=== PATIENT | female | born 1940 | race Caucasian/White ===

== ENCOUNTER 2023-10-27 14:04 | Emergency (ER) | payer OTHER ==
[~2023-10-27] VITALS: Ht 149.9 cm; Wt 69.9 kg
[2023-10-27 14:27] VITALS: BP 119/95; PULSE 65; RESP 19; TEMP 98.2; O2SAT 99
[2023-10-27] MEDS: ACETAMINOPHEN 325 MG TAB PO ONE (15:33)
[2023-10-27 15:38] LABS: BASOPHILS # (AUTO) 0.1 K/uL (0.00-0.22); BASOPHILS % (AUTO) 1.2 % (0.0-2.0); EOSINOPHILS # (AUTO) 0.2 K/uL (0-0.4); EOSINOPHILS % (AUTO) 3.6 % (0.0-4.0); HEMATOCRIT 27.5 % (36-48); HEMOGLOBIN 9.4 g/dL (12.0-16.0); LYMPHOCYTES # (AUTO) 1.6 K/uL (2.5-16.5); LYMPHOCYTES % (AUTO) 23.1 % (20.5-51.1); MEAN CORPUSCULAR HEMOGLOBIN 33 pg (27-31); MEAN CORPUSCULAR HGB CONC 34 g/dL (33-37); MEAN CORPUSCULAR VOLUME 95.2 fL (80-94); MONOCYTES # (AUTO) 0.4 K/uL (0.8-1.0); MONOCYTES % (AUTO) 6.7 % (1.7-9.3); NEUTROPHILS # (AUTO) 4.4 K/uL (1.8-7.7); NEUTROPHILS % (AUTO) 65.4 % (42.2-75.2); PLATELET COUNT (AUTO) 488 K/uL (140-450); RED BLOOD CELL COUNT(AUTO) 2.88 MIL/uL (4.20-5.40); WHITE BLOOD COUNT (AUTO) 6.7 K/uL (4.8-10.8)
[2023-10-27 15:50] LABS: ANION GAP 12.5 (8-16); CALCIUM 8.9 mg/dL (8.5-10.1); CARBON DIOXIDE 25.7 mmol/L (21-32); CHLORIDE 108 mmol/L (98-107); CREATININE 0.9 mg/dL (0.6-1.3); GLUCOSE 110 mg/dL (74-106); POTASSIUM 4.2 mmol/L (3.5-5.1); SODIUM SERUM 142 mmol/L (136-145); UREA NITROGEN, BLOOD 24 mg/dL (7-18)
[2023-10-27 16:16] LABS: APPEARANCE,URINE SL CLOUDY (CLEAR); BILIRUBIN,URINE NEGATIVE (NEGATIVE); BLOOD, URINE NEGATIVE (NEGATIVE); COLOR,URINE YELLOW (YELLOW); LEUKOCYTE ESTERASE ,URINE 1+ (NEGATIVE); NITRITE, URINE POSITIVE (NEGATIVE); PROTEIN,URINE NEGATIVE (NEGATIVE); UGLUCOSE NEGATIVE (NEGATIVE); UROBILINOGEN,URINE 0.2 EU/dL (0.2 - 1)
[2023-10-27 16:18] LABS: BACTERIA,URINE 2+ /HPF (None Seen); RBC,URINE 0 /HPF (0-5)
[2023-10-27 16:19] LABS: MUCUS,URINE None Seen /LPF (None Seen); SQUAMOUS EPITHELIAL CELL,UR 4-10 (MOD) /LPF (0-3 (FEW))
[2023-10-27] MEDS ORDERED: NITR100C1 PO (16:32)
[2023-10-27] MEDS ORDERED: ACET-10509 PO (16:32)
[2023-10-27] MEDS ORDERED: DICL20GE TP (16:47)
[2023-10-27 17:05] VITALS: BP 119/95; PULSE 65; RESP 19; TEMP 98.2; O2SAT 99
== END 2023-10-27 17:05 | disposition home or self-care (01) ==
LOC: MED 14:04
DX: S22.41XA Multiple fractures of ribs, right side, initial encounter for closed fracture (principal); Z20.822 Contact with and (suspected) exposure to COVID-19; M25.551 Pain in right hip; R51.9 Headache, unspecified; N39.0 Urinary tract infection, site not specified; J45.909 Unspecified asthma, uncomplicated; I10 Essential (primary) hypertension; Z88.0 Allergy status to penicillin; Z79.899 Other long term (current) drug therapy; W18.30XA Fall on same level, unspecified, initial encounter; Y93.89 Activity, other specified; Y92.89 Other specified places as the place of occurrence of the external cause; Y99.8 Other external cause status
CPT/HCPCS: 36415; 70450; 71250; 72192; 80048; 81001; 84484; 85025; 87086; 99284